=== PATIENT | female | born 1935 | race Caucasian/White ===

== ENCOUNTER → 2024-03-08 13:55 | Outpatient (REF) | payer OTHER, MEDICARE, SELFPAY ==
[2024-03-08 15:57] LABS: % Basophils 0.8 % (0-2); % Eosinophils 2.4 % (0-6); % Immature Granulocytes 0.5 % (0-0.5); % Lymphocytes 25.2 % (20.5-51.1); % Monocytes 12.7 % (1.7-9.3); % Neutrophils 58.4 % (42.2-75.2); Absolute Basophils 0.1 10^3/uL (0-0.2); Absolute Eosinophils 0.2 10^3/uL (0-0.7); Absolute Neutrophils 4.6 10^3/uL (1.4-6.5); Hematocrit 42.4 % (37.0-47.0); Hemoglobin 13.8 g/dL (12.0-16.0); Mean Corp Hgb Conc. 32.5 g/dL (33.0-37.0); Mean Corpuscular Hgb 29.7 pg (27.0-31.0); Mean Corpuscular Volume 91.2 fL (81.0-99.0); Mean Platelet Volume 9.7 fL (7.4-10.4); Nucleated Red Blood Cells % 0 %; Platelet Count 264 10^3/uL (130-400); Red Blood Cell Count 4.65 10^6/uL (4.20-5.40); Red Cell Dist. Width 15.9 % (11.5-14.5); White Blood Cell Count 7.9 10^3/uL (4.8-10.8)
[2024-03-08 16:17] LABS: Uric Acid 5.7 mg/dl (2.5-6.2)
[2024-03-08 16:43] LABS: Erythrocyte Sed Rate 35 mm/hour (0-20)
== END ==
LOC: REG 13:55
PROVIDERS: ATTENDING PHYSICIAN Hospitalist
DX: M79.605 Pain in left leg (principal); M10.9 Gout, unspecified
CPT/HCPCS: 36415; 73560; 84550; 85025; 85652; 86140

== ENCOUNTER → 2024-04-07 07:50 | Outpatient (REF) | payer OTHER, SELFPAY ==
[2024-04-07 11:19] LABS: Vitamin D, 25-OH*** 44.2 ng/mL (30-80)
== END ==
LOC: RAD 07:50
PROVIDERS: ATTENDING PHYSICIAN Hospitalist
DX: M79.605 Pain in left leg (principal); I42.9 Cardiomyopathy, unspecified
CPT/HCPCS: 36415; 82306; 93925

== ENCOUNTER → 2024-05-19 09:50 | Outpatient (REF) | payer OTHER, SELFPAY ==
[2024-05-19 12:38] LABS: ALT (SGPT) 21 U/L (0-35); AST (SGOT) 28 U/L (14-36); Albumin 4.3 g/dl (3.5-5.0); Alkaline Phosphatase 87 U/L (38-126); Blood Urea Nitrogen 30 mg/dl (7-17); Calcium 9.8 mg/dl (8.4-10.2); Carbon Dioxide 35 mmol/L (22-30); Chloride 98 mmol/L (98-107); Glucose 96 mg/dl (70-99); Potassium 4.9 mmol/L (3.5-5.1); Sodium 139 mmol/L (135-145); Total Bilirubin 0.7 mg/dl (0.2-1.3); Total Protein 7.1 g/dl (6.3-8.2); Uric Acid 4.4 mg/dl (2.5-6.2); eGFR 43.54
[2024-05-19 12:53] LABS: Vitamin D, 25-OH*** 35.3 ng/mL (30-80)
[2024-05-19 13:06] LABS: TSH Reflex To Free T4 3.63 uIU/ml (0.47-4.68)
[2024-05-19 13:25] LABS: Vitamin B12 375 pg/ml (239-931)
== END ==
LOC: HWRAD 09:50
PROVIDERS: ATTENDING PHYSICIAN Hospitalist
DX: E04.1 Nontoxic single thyroid nodule (principal); I42.9 Cardiomyopathy, unspecified; E55.9 Vitamin D deficiency, unspecified; M10.9 Gout, unspecified; R41.3 Other amnesia
CPT/HCPCS: 36415; 76536; 80053; 82306; 82607; 84443; 84550

== ENCOUNTER → 2024-08-11 09:35 | Outpatient (REF) | payer OTHER, SELFPAY ==
[2024-08-11 10:51] LABS: Blood Urea Nitrogen 35 mg/dl (7-17); Calcium 9.5 mg/dl (8.4-10.2); Carbon Dioxide 33 mmol/L (22-30); Chloride 101 mmol/L (98-107); Glucose 93 mg/dl (70-99); Potassium 4.5 mmol/L (3.5-5.1); Sodium 142 mmol/L (135-145); eGFR 39.55
== END ==
LOC: OLABWIL 09:35
PROVIDERS: ATTENDING PHYSICIAN Hospitalist
DX: N18.32 Chronic kidney disease, stage 3b (principal)
CPT/HCPCS: 36415; 80048

== ENCOUNTER → 2024-12-01 10:21 | Outpatient (REF) | payer OTHER, SELFPAY ==
[2024-12-01 12:00] LABS: Albumin 4.5 g/dl (3.5-5.0); Blood Urea Nitrogen 31 mg/dl (7-17); Calcium 9.2 mg/dl (8.4-10.2); Carbon Dioxide 34 mmol/L (22-30); Chloride 98 mmol/L (98-107); Glucose 94 mg/dl (70-99); Potassium 4.2 mmol/L (3.5-5.1); Sodium 139 mmol/L (135-145); eGFR 43.54
== END ==
LOC: OLABWIL 10:21
PROVIDERS: ATTENDING PHYSICIAN Internal Medicine Cardiovascular Disease
DX: I42.2 Other hypertrophic cardiomyopathy (principal); Z95.0 Presence of cardiac pacemaker; Z95.3 Presence of xenogenic heart valve; Z95.5 Presence of coronary angioplasty implant and graft
CPT/HCPCS: 36415; 80069

== ENCOUNTER → 2024-12-16 08:51 | Outpatient (REF) | payer OTHER, SELFPAY | LOC: RCS 08:51 | PROVIDERS: ATTENDING PHYSICIAN Internal Medicine Cardiovascular Disease; FAMILY PHYSICIAN Hospitalist | DX: Z95.0 Presence of cardiac pacemaker (principal); I42.2 Other hypertrophic cardiomyopathy; Z95.3 Presence of xenogenic heart valve; Z95.5 Presence of coronary angioplasty implant and graft | CPT/HCPCS: 93306 ==